=== PATIENT | male | born 1965 | race Caucasian/White ===

== ENCOUNTER 2019-12-13 16:16 | Emergency (ER) | payer MEDICARE, MEDICAID ==
[~2019-12-13] VITALS: Ht 172.7 cm; Wt 93.0 kg
[~2019-12-13 16:16] MED LIST: ALT5C PO; ATOR10TA70 PO; CARV3.122 PO; DILT-36 PO; GLIP10TA11 PO; HYDR25TA4 PO; METF-437 PO
[2019-12-13 16:54] VITALS: BP 110/76
[2019-12-13] MEDS ORDERED: CEPH-572 PO (18:01)
--- NOTE | 2019-12-13 18:01 | NUR ---
pt provided lester crackers and milk as requested by provider.
--- NOTE | 2019-12-13 18:07 | NUR ---
wound cleaned w/ ns, abx ointment applied and dressed w/ non-adhesive.
--- NOTE | 2019-12-13 18:14 | NUR ---
discussed pt's c/o sow w/ PA Senthil;new order received for tylenol
[2019-12-13] MEDS ORDERED: acetaminophen 325mg tablet PO ONE (18:20)
== END 2019-12-13 18:23 | disposition home or self-care (01) ==
LOC: ER 16:17
DX: L03.116 Cellulitis of left lower limb (principal); E11.9 Type 2 diabetes mellitus without complications; G89.29 Other chronic pain; Z59.0 Homelessness; Z90.89 Acquired absence of other organs; Z79.899 Other long term (current) drug therapy
CPT/HCPCS: 99283

== ENCOUNTER 2019-12-19 14:20 | Emergency (ER) | payer MEDICARE, MEDICAID ==
[~2019-12-19] VITALS: Ht 172.7 cm; Wt 93.2 kg
[~2019-12-19 14:20] MED LIST changes: +CEPH-572 PO
[2019-12-19 14:24] VITALS: BP 135/98
[2019-12-19] MEDS ORDERED: BACDS PO (15:49)
== END 2019-12-19 16:41 | disposition home or self-care (01) ==
LOC: ER 14:21
DX: L03.116 Cellulitis of left lower limb (principal); E11.9 Type 2 diabetes mellitus without complications; G89.29 Other chronic pain; Z90.89 Acquired absence of other organs; Z59.0 Homelessness; Z79.899 Other long term (current) drug therapy
CPT/HCPCS: 99283

== ENCOUNTER 2019-12-21 11:08 | Emergency (ER) | payer MEDICARE, MEDICAID ==
[~2019-12-21] VITALS: Ht 175.3 cm; Wt 90.0 kg
[~2019-12-21 11:08] MED LIST changes: +BACDS PO
[2019-12-21 11:30] VITALS: BP 155/106
[2019-12-21] MEDS ORDERED: normal saline 1000ML IV soln IV ONE (12:25)
[2019-12-21 12:29] LABS: BASOPHILS % (AUTO) 0.3 % (0-1); EOSINOPHILS % (AUTO) 0.1 % (0-6); HEMATOCRIT 49.9 % (42.0-52.0); HEMOGLOBIN 17.2 g/dl (14.0-17.9); LYMPHOCYTES # (AUTO) 1.1 X10'3 (1.1-4.8); LYMPHOCYTES % (AUTO) 12.7 % (21-51); MEAN CORPUSCULAR HEMOGLOBIN 32.7 PG (27.0-31.0); MEAN CORPUSCULAR HGB CONC 34.4 g/dL (33.0-36.5); MEAN PLATELET VOLUME 7.6 FL (7.4-10.4); MONOCYTES # (AUTO) 1.2 X10'3 (0-0.9); MONOCYTES % (AUTO) 13.8 % (2-12); NEUTROPHILS # (AUTO) 6.6 X10'3 (1.8-7.7); NEUTROPHILS % (AUTO) 73.1 % (42-75); PLATELET COUNT 286 X10'3 (140-440); RED BLOOD COUNT 5.26 X10'6 (4.70-6.10); RED CELL DISTRIBUTION WIDTH 13.1 % (11.5-14.5)
[2019-12-21 12:38] LABS: ALANINE AMINOTRANSFERASE 51 U/L (12-78); ALBUMIN 4.1 G/DL (3.4-5.0); ALKALINE PHOSPHATASE 114 IU/L (46-116); ANION GAP 10 (8-16); ASPARTATE AMINO TRANSFERASE 30 U/L (10-37); BILIRUBIN,TOTAL 0.4 MG/DL (0.1-1.0); BLOOD UREA NITROGEN 9 MG/DL (7-18); BUN/CREATININE RATIO 9.8 (5.4-32.0); CALCIUM 9.6 MG/DL (8.5-10.1); CHLORIDE 102 MMOL/L (99-107); CREATININE 0.92 MG/DL (0.60-1.10); GLUCOSE 124 MG/DL (70-104); POTASSIUM 3.2 MMOL/L (3.5-5.1); SODIUM 141 MMOL/L (135-145); TOTAL CARBON DIOXIDE 29.4 MMOL/L (24-32); TOTAL PROTEIN 8.3 G/DL (6.4-8.2); eGFR 86 ML/MIN
[2019-12-21] MEDS ORDERED: LORazepam 2 mg/ml vial IV ONE (12:40)
[2019-12-21 12:49] LABS: ETHANOL < 0.010 GM/DL (0.0-0.010)
--- NOTE | 2019-12-21 12:58 | NUR ---
PATIENT STATES HE IS HERE FOR MEDICATION REFILL. STATES HE WAS HERE A FEW DAYS AGO AND WAS GIVEN PRESCRIPTIONS THAT WERE LOST AT HOME. PATIENT HAS HR 108 AT PRESENT, COMING DOWN FROM 120'S ON ARRIVAL. HE IS ANXIOUS AND WANTS TO LEAVE AMA WITH RX, BUT THEN DECIDED TO STAY FOR WORK-UP, IN ORDER TO RECEIVE MEDICATION REFILL.
--- NOTE | 2019-12-21 13:14 | NUR ---
Pt up at doorway, stating he needs to go to the pharmacy and he wants to leave. Pt advised that we are still assessing and treating him and attempted to resolve to make him stay. Pt is still insisting we dc his IV as he wants to leave. MARTHA Cobb notified and in to speak with pt. Pt advised of all risks involved, up to and including . AMA signed. IV dc'd cannula intact. Ambulatory out of ED.
== END 2019-12-21 13:16 | disposition left against medical advice (07) ==
LOC: ER 11:09
DX: R00.0 Tachycardia, unspecified (principal); M54.2 Cervicalgia; E11.9 Type 2 diabetes mellitus without complications; G89.29 Other chronic pain; F15.90 Other stimulant use, unspecified, uncomplicated; Z86.73 Personal history of transient ischemic attack (TIA), and cerebral infarction without residual deficits; Z90.89 Acquired absence of other organs; Z59.0 Homelessness; Z79.2 Long term (current) use of antibiotics; Z79.899 Other long term (current) drug therapy
CPT/HCPCS: 36415; 71045; 80053; 80320; 83605; 83880; 84145; 84443; 85025; 93005; 96360; 99285; J7030; 84484; 87040

== ENCOUNTER 2019-12-23 01:13 | Emergency (ER) | payer MEDICARE, MEDICAID ==
[~2019-12-23] VITALS: Ht 172.7 cm; Wt 90.9 kg
[2019-12-23 01:17] VITALS: BP 150/96
--- NOTE | 2019-12-23 01:30 | NUR ---
WENT TO ASSESS PT, PT IN BATHROOM.
--- NOTE | 2019-12-23 02:10 | NUR ---
PT REQUIRES MULTIPLE REDIRECTIONS BACK TO HIS ROOM. IS WANDERING OUTSIDE OF ROOM REQUESTIVE OF ITEMS FROM STAFF
--- NOTE | 2019-12-23 02:43 | NUR ---
PT REFUSING TO PUT ON GOWN PER EDMD COBIAN REQUEST FOR PROPER PT ASSESSMENT.
--- NOTE | 2019-12-23 02:54 | NUR ---
PT CONTINUES TO REFUSE TO PUT ON GOWN AND STATES "WELL THEN I'M JUST GOING TO LEAVE. YOU ARE IGNORING ME." EXPLAINED TO PT THAT WE ARE BUSY AND TRYING TO GIVE PROPER CARE TO ALL PT IN THE ER, PT BECAME MORE ESCALATED AND STATES HE WANTED TO LEAVE. PT EXITED OUT OF THE AMBULANCE DOORS. TITA COBIAN MADE AWARE.
== END 2019-12-23 02:57 | disposition left against medical advice (07) ==
LOC: ER 01:13
DX: M54.2 Cervicalgia (principal); G89.29 Other chronic pain; R11.2 Nausea with vomiting, unspecified; R41.0 Disorientation, unspecified; I50.9 Heart failure, unspecified; I11.0 Hypertensive heart disease with heart failure; E11.9 Type 2 diabetes mellitus without complications; F17.200 Nicotine dependence, unspecified, uncomplicated; F15.90 Other stimulant use, unspecified, uncomplicated; Z86.73 Personal history of transient ischemic attack (TIA), and cerebral infarction without residual deficits; Z90.89 Acquired absence of other organs; Z72.89 Other problems related to lifestyle; Z59.0 Homelessness; Z79.899 Other long term (current) drug therapy
CPT/HCPCS: 99281

== ENCOUNTER 2019-12-24 21:24 | Emergency (ER) | payer MEDICARE, MEDICAID ==
[~2019-12-24] VITALS: Ht 172.7 cm; Wt 90.9 kg
[2019-12-24 21:27] VITALS: BP 110/72
--- NOTE | 2019-12-24 22:21 | NUR ---
Pt placed in room 18 that does not have a gurney only a chair. Pt stated he needed a new room now or he would fall down. Explained to patient that we did not have an open room with a gurney and if he felt like he would fall to please sit down. Pt stated he is not going to sit down and if we dont give him a room with a bed he is leaving. Encouraged patient to sit down, pt ambulated with steady gait to the restroom and then left the ER.
== END 2019-12-24 22:23 | disposition left against medical advice (07) ==
LOC: ER 21:25
DX: M54.2 Cervicalgia (principal); Z53.21 Procedure and treatment not carried out due to patient leaving prior to being seen by health care provider

== ENCOUNTER 2020-10-28 21:40 | Emergency (ER) | payer MEDICARE, MEDICAID ==
[~2020-10-28] VITALS: Ht 175.3 cm; Wt 95.5 kg
[~2020-10-28 21:40] MED LIST changes: -BACDS PO; -CEPH-572 PO
[2020-10-28 22:13] VITALS: BP 120/84
== END 2020-10-29 04:06 | disposition left against medical advice (07) ==
LOC: ER 21:41
DX: F10.129 Alcohol abuse with intoxication, unspecified (principal); Z53.21 Procedure and treatment not carried out due to patient leaving prior to being seen by health care provider; Y92.89 Other specified places as the place of occurrence of the external cause; Y90.9 Presence of alcohol in blood, level not specified

== ENCOUNTER 2023-03-22 20:55 | Emergency (ER) | payer MEDICARE, MEDICAID ==
[~2023-03-22] VITALS: Ht 175.3 cm; Wt 94.1 kg
[2023-03-22] MEDS ORDERED: nystatin 15 GM powder TP ONE (22:55)
[2023-03-22] MEDS ORDERED: acetaminophen 325mg tablet PO ONE (22:55)
[2023-03-22] MEDS ORDERED: ibuprofen tablet 400 MG TABLET PO ONE (22:55)
[2023-03-22] MEDS ORDERED: ALBU18HF2 IH (23:14)
[2023-03-22 23:43] VITALS: BP 100/60; PULSE 101; RESP 18; TEMP 97.8; O2SAT 98
== END 2023-03-22 23:45 | disposition home or self-care (01) ==
LOC: ER 20:56
DX: T69.021A Immersion foot, right foot, initial encounter (principal); T69.022A Immersion foot, left foot, initial encounter; I11.0 Hypertensive heart disease with heart failure; I50.9 Heart failure, unspecified; E11.9 Type 2 diabetes mellitus without complications; F15.90 Other stimulant use, unspecified, uncomplicated; G89.29 Other chronic pain; Z86.73 Personal history of transient ischemic attack (TIA), and cerebral infarction without residual deficits; Z59.00 Homelessness unspecified; Z72.89 Other problems related to lifestyle; Z79.899 Other long term (current) drug therapy
CPT/HCPCS: 73560; 99284

== ENCOUNTER 2023-03-26 07:12 | Emergency (ER) | payer MEDICARE, MEDICAID ==
[~2023-03-26] VITALS: Ht 175.3 cm; Wt 91.0 kg
[~2023-03-26 07:12] MED LIST changes: +ALBU18HF2 IH
[2023-03-26 07:18] VITALS: BP 147/86; PULSE 102; RESP 18; TEMP 98.1; O2SAT 97
[2023-03-26] MEDS ORDERED: clotrimazole topical cream 15gm tube TP STA (16:20)
== END 2023-03-26 17:31 | disposition home or self-care (01) ==
LOC: ER 07:12
DX: B35.3 Tinea pedis (principal); I11.0 Hypertensive heart disease with heart failure; I50.9 Heart failure, unspecified; E11.9 Type 2 diabetes mellitus without complications; G89.29 Other chronic pain; F15.90 Other stimulant use, unspecified, uncomplicated; Z86.73 Personal history of transient ischemic attack (TIA), and cerebral infarction without residual deficits; Z72.89 Other problems related to lifestyle; Z79.899 Other long term (current) drug therapy; Z59.00 Homelessness unspecified
CPT/HCPCS: 82948; 99283

== ENCOUNTER 2023-03-27 02:42 | Emergency (ER) | payer MEDICARE, MEDICAID ==
[~2023-03-27] VITALS: Ht 175.3 cm; Wt 107.0 kg
[2023-03-27] MEDS ORDERED: ibuprofen tablet 400 MG TABLET PO ONE (03:25)
[2023-03-27] MEDS ORDERED: acetaminophen 325mg tablet PO ONE (03:25)
[2023-03-27 03:46] VITALS: BP 138/80; PULSE 96; RESP 16; TEMP 98.2; O2SAT 98
== END 2023-03-27 03:51 | disposition home or self-care (01) ==
LOC: ER 02:43
DX: M25.561 Pain in right knee (principal); I11.0 Hypertensive heart disease with heart failure; I50.9 Heart failure, unspecified; E11.9 Type 2 diabetes mellitus without complications; F15.90 Other stimulant use, unspecified, uncomplicated; Z59.00 Homelessness unspecified; Z86.73 Personal history of transient ischemic attack (TIA), and cerebral infarction without residual deficits
CPT/HCPCS: 99283; A6449

== ENCOUNTER 2024-01-25 23:39 | Inpatient (IN) | payer MEDICARE, MEDICAID ==
[~2024-01-25] VITALS: Ht 175.3 cm; Wt 98.0 kg
[~2024-01-25 23:39] MED LIST changes: -GLIP10TA11 PO; +GLIP10TA18 PO
[2024-01-25] MEDS ORDERED: CefTRIAXone 2gm/NS 100ml IVPB 50 ML IV ONE (23:50)
[2024-01-26 00:17] LABS: BASOPHILS # (AUTO) 0.1 X10'3 (0-0.2); BASOPHILS % (AUTO) 0.5 % (0-1); EOSINOPHILS # (AUTO) 0.3 X10'3 (0-0.9); EOSINOPHILS % (AUTO) 2.4 % (0-6); HEMATOCRIT 48.4 % (42.0-52.0); HEMOGLOBIN 16.1 g/dl (14.0-17.9); LYMPHOCYTES # (AUTO) 1.8 X10'3 (1.1-4.8); LYMPHOCYTES % (AUTO) 14.6 % (21-51); MEAN CORPUSCULAR HEMOGLOBIN 31.5 PG (27.0-31.0); MEAN CORPUSCULAR HGB CONC 33.3 g/dL (33.0-36.5); MEAN CORPUSCULAR VOLUME 94.8 FL (78-98); MEAN PLATELET VOLUME 7.5 FL (7.4-10.4); MONOCYTES # (AUTO) 1.2 X10'3 (0-0.9); NEUTROPHILS # (AUTO) 8.7 X10'3 (1.8-7.7); NEUTROPHILS % (AUTO) 72.5 % (42-75); PLATELET COUNT 264 X10'3 (140-440); RED CELL DISTRIBUTION WIDTH 13.2 % (11.5-14.5)
[2024-01-26 00:19] LABS: BILIRUBIN,URINE NEGATIVE (Neg); CLARITY,URINE CLOUDY (Clear); COLOR,URINE YELLOW (Yellow); GLUCOSE, URINE >=1000 mg/dl (Neg); KETONES,URINE 15 mg/dl (Neg); LEUKOCYTE ESTERASE ,URINE SMALL (Neg); NITRITES, URINE NEGATIVE (Neg); OCCULT BLOOD,URINE LARGE (Neg); PH,URINE 6.5 (4.8-8.0); PROTEIN,URINE 100 mg/dl (Neg)
[2024-01-26] MEDS: CefTRIAXone 2gm/D5W 50ml BAG 50 ML IV ONE (00:25)
[2024-01-26 00:26] LABS: ALANINE AMINOTRANSFERASE 58 U/L (12-78); ALBUMIN 3.7 G/DL (3.4-5.0); ALBUMIN/GLOBULIN RATIO 0.9 (1.1-1.5); ALKALINE PHOSPHATASE 91 IU/L (46-116); ANION GAP 5 (8-16); ASPARTATE AMINO TRANSFERASE 18 U/L (10-37); BILIRUBIN,TOTAL 0.4 MG/DL (0.1-1.0); BLOOD UREA NITROGEN 19 MG/DL (7-18); BUN/CREATININE RATIO 18.3 (10.0-20.0); CALCIUM 9.1 MG/DL (8.5-10.1); CHLORIDE 102 MMOL/L (99-107); CREATININE 1.04 MG/DL (0.60-1.10); GLUCOSE 257 MG/DL (70-104); POTASSIUM 4.2 MMOL/L (3.5-5.1); SODIUM 136 MMOL/L (135-145); TOTAL CARBON DIOXIDE 29.5 MMOL/L (24-32); TOTAL PROTEIN 7.7 G/DL (6.4-8.2); eCRCL 77 ML/MIN; eGFR 73 ML/MIN
[2024-01-26] MEDS: normal saline 1000ML IV soln IVB ONE (00:26)
[2024-01-26] MEDS ORDERED: iohexol 300mg/ml 100ml inj. ONE (00:27)
[2024-01-26 00:28] LABS: UA COLLECTION TYPE CLN CATCH MIDSTREAM
[2024-01-26 00:29] LABS: C-REACTIVE PROTEIN 0.27 MG/DL (0.0-0.5); LIPASE 43 U/L (16-77)
[2024-01-26 00:29] LABS: BACTERIA,URINE 1+ /HPF (Neg); RBC,URINE 50-100 /HPF (0-2); WBC,URINE 30-50 /HPF (0-4)
[2024-01-26 00:30] LABS: SPERM FEW /HPF (NEGATIVE); SQUAMOUS EPITHELIAL CELL,UR FEW /LPF (FEW); TRANSITIONAL EPI CELLS,URINE FEW /HPF
[2024-01-26 00:31] LABS: AMORPHOUS URATES 1+
[2024-01-26 00:37] LABS: URINE AMPHETAMINE SCREEN NEGATIVE (Neg); URINE BARBITUATE SCREEN NEGATIVE (Neg); URINE BENZODIAZEPINES SCREEN NEGATIVE (Neg); URINE CANNABINOID SCREEN NEGATIVE (Neg); URINE COCAINE SCREEN NEGATIVE (Neg); URINE METHADONE SCREEN NEGATIVE (Neg); URINE OPIATE SCREEN NEGATIVE (Neg); URINE PHENCYCLIDINE SCREEN NEGATIVE (Neg)
[2024-01-26] MEDS: ondansetron/PF 4mg/2ml inj IV ONE (01:26)
[2024-01-26] MEDS: morphine 4 MG/ML inj SYRINge IV ONE (01:26)
[2024-01-26] MEDS: fentaNYL/PF 50MCG/1 ML 2ML syringe IV ONE (02:02)
[2024-01-26] MEDS: HYDROmorphone 1 mg/ml syringe IV ONE (02:31)
[2024-01-26] MEDS ORDERED: CEFP100S9 PO (03:13)
[2024-01-26] MEDS: ketorolac trometh 30MG/ML vial 30 MG/ML VIAL IV ONE (04:26)
[2024-01-26] MEDS ORDERED: potassium Cl 20 mEq SR tablet PO PRN ×2 (04:35)
[2024-01-26] MEDS ORDERED: acetaminophen 325mg tablet PO PRN (04:35)
[2024-01-26] MEDS ORDERED: DEXTROSE 15 GM of carb/4 tabs (each vial/BOTTLE has 4 tablets) PO PRN ×2 (04:35)
[2024-01-26] MEDS ORDERED: magnesium sulf-water 2g/50mL 50 ML IV PRN (04:35)
[2024-01-26] MEDS ORDERED: HYDROcodone/acetaminophen 5mg/325mg tablet PO PRN (04:35)
[2024-01-26] MEDS ORDERED: ondansetron/PF 4mg/2ml inj IV PRN (04:35)
[2024-01-26] MEDS ORDERED: magnesium Cl slow-release 64mg tablet PO PRN (04:35)
[2024-01-26] MEDS ORDERED: potassium Cl 40MEQ/1/2NS 520ml 520 ML IV PRN (04:35)
[2024-01-26] MEDS ORDERED: magnesium sulf-water 4G/100mL 100 ML IV PRN (04:35)
[2024-01-26] MEDS ORDERED: dextrose 50%-water 50ml dispensing syringe IV PRN ×2 (04:35)
[2024-01-26] MEDS ORDERED: glucagon, human recombinant 1mg kit SUBCUT PRN (04:35)
[2024-01-26] MEDS ORDERED: magnesium hydroxide 30ml (MOM) UD suspension PO PRN (04:35)
[2024-01-26 05:22] LABS: HEMOGLOBIN A1C 8.8 % (4.5-6.2)
[2024-01-26] MEDS: HYDROcodone/acetaminophen 10/325mg tab PO PRN (05:27)
[2024-01-26] MEDS: normal saline 1000ml 1,000 ML IV SCH ×2 (05:28→12:40)
[2024-01-26] MEDS: INSULIN LISPRO 100 UNIT/ML INSULN.PEN MULTI-DOSE SQ SCH ×2 (07:33→09:00)
[2024-01-26] MEDS: docusate sod 100mg capsule PO SCH (07:35)
[2024-01-26] MEDS: LORazepam 0.5 MG tablet PO ONE (07:35)
[2024-01-26] MEDS: enoxaparin 40mg/0.4ml syringe SUBCUT SCH (07:36)
[2024-01-26] MEDS: K and/or MAG REPLACEMENT MC SCH (08:00)
[2024-01-26] MEDS: nicotine 21mg patch - 24 hr TD ONE (09:29)
[2024-01-26 10:30] VITALS: RESP 20
[2024-01-26 10:51] VITALS: BP 114/78; PULSE 97; RESP 15; TEMP 97.8; O2SAT 99
[2024-01-26] MEDS ORDERED: enoxaparin 30mg/0.3ml syringe SUBCUT SCH (13:30)
[2024-01-26] MEDS ORDERED: NALT50TA5 PO (15:45)
[2024-01-26] MEDS ORDERED: GLIP5TAB23 PO (15:45)
[2024-01-26] MEDS ORDERED: ATOR40TA72 PO (15:45)
[2024-01-26] MEDS ORDERED: METF-438 PO (15:45)
[2024-01-26] MEDS ORDERED: INSU100I98 (15:45)
[2024-01-26 18:00] VITALS: BP 127/86; PULSE 104; RESP 16; TEMP 97.5; O2SAT 92
[2024-01-26] MEDS ORDERED: albuterol 2.5 MG/3 ML nebule NEB SCH (18:00)
[2024-01-26] MEDS: morphine 2 MG/ML inj. syringe IV ONE (20:45)
[2024-01-26] MEDS: CefTRIAXone/D5W-Rocephin 1gm 50 ML IV SCH (20:45)
[2024-01-26] MEDS: insulin glargine (Lantus) pen - multi-dose SQ SCH (21:07)
[2024-01-26 22:00] VITALS: BP 149/92; PULSE 104; RESP 20; TEMP 98.3; O2SAT 96
[2024-01-27] MEDS: nicotine 14mg patch - 24hr TD SCH (00:48)
[2024-01-27 06:00] VITALS: BP 124/79; PULSE 92; RESP 20; TEMP 97.1; O2SAT 94
[2024-01-27 07:04] LABS: BASOPHILS # (AUTO) 0.1 X10'3 (0-0.2); BASOPHILS % (AUTO) 0.5 % (0-1); EOSINOPHILS # (AUTO) 0.3 X10'3 (0-0.9); HEMATOCRIT 42.6 % (42.0-52.0); HEMOGLOBIN 14.4 g/dl (14.0-17.9); LYMPHOCYTES # (AUTO) 1.6 X10'3 (1.1-4.8); LYMPHOCYTES % (AUTO) 14.2 % (21-51); MEAN CORPUSCULAR HEMOGLOBIN 32.5 PG (27.0-31.0); MEAN CORPUSCULAR HGB CONC 33.9 g/dL (33.0-36.5); MEAN PLATELET VOLUME 8.1 FL (7.4-10.4); MONOCYTES # (AUTO) 1.2 X10'3 (0-0.9); MONOCYTES % (AUTO) 10.8 % (2-12); NEUTROPHILS # (AUTO) 7.9 X10'3 (1.8-7.7); NEUTROPHILS % (AUTO) 71.5 % (42-75); PLATELET COUNT 223 X10'3 (140-440); RED BLOOD COUNT 4.43 X10'6 (4.70-6.10)
[2024-01-27 07:16] LABS: ALBUMIN 3.1 G/DL (3.4-5.0); ANION GAP 6 (8-16); BLOOD UREA NITROGEN 13 MG/DL (7-18); BUN/CREATININE RATIO 16.5 (10.0-20.0); CALCIUM 8.2 MG/DL (8.5-10.1); CHLORIDE 103 MMOL/L (99-107); CREATININE 0.79 MG/DL (0.60-1.10); GLUCOSE 136 MG/DL (70-104); MAGNESIUM 1.7 MG/DL (1.5-2.4); POTASSIUM 3.6 MMOL/L (3.5-5.1); SODIUM 137 MMOL/L (135-145); TOTAL CARBON DIOXIDE 27.7 MMOL/L (24-32); eCRCL 102 ML/MIN; eGFR > 90 ML/MIN
[2024-01-27] MEDS: atorvastatin 20mg tablet PO SCH (07:46)
[2024-01-27] MEDS: enoxaparin 40mg/0.4ml syringe SUBCUT SCH (07:50)
[2024-01-27 07:54] VITALS: RESP 20
[2024-01-27] MEDS: naltrexone 50mg tablet PO SCH (08:00)
[2024-01-27 10:00] VITALS: BP 103/65; PULSE 76; RESP 16; TEMP 97.9; O2SAT 93
[2024-01-27] MEDS ORDERED: albuterol 2.5 MG/3 ML nebule NEB SCH (11:00)
[2024-01-27] MEDS ORDERED: albuterol 2.5 MG/3 ML nebule NEB PRN (11:05)
[2024-01-27] MEDS: morphine 2 MG/ML inj. syringe IV PRN (11:50)
[2024-01-27] MEDS: carVEDilol 3.125mg tablet PO SCH (14:15)
[2024-01-27] MEDS: FLU VACC TS2024-25(6MOS UP)/PF 45 MCG/0.5 ML SYRINGE IMVAC ONE (16:18)
[2024-01-27 18:00] VITALS: BP 110/85; PULSE 82; RESP 20; TEMP 98.3; O2SAT 93
[2024-01-27] MEDS: tamsulosin 0.4mg capsule PO SCH (19:46)
[2024-01-27 22:00] VITALS: BP 109/77; PULSE 77; RESP 18; TEMP 97.5; O2SAT 93
[2024-01-28 06:30] LABS: BASOPHILS % (AUTO) 0.4 % (0-1); EOSINOPHILS # (AUTO) 0.3 X10'3 (0-0.9); EOSINOPHILS % (AUTO) 5.4 % (0-6); HEMATOCRIT 40.1 % (42.0-52.0); HEMOGLOBIN 13.5 g/dl (14.0-17.9); LYMPHOCYTES # (AUTO) 1.4 X10'3 (1.1-4.8); MEAN CORPUSCULAR HGB CONC 33.5 g/dL (33.0-36.5); MEAN CORPUSCULAR VOLUME 95.5 FL (78-98); MEAN PLATELET VOLUME 7.5 FL (7.4-10.4); MONOCYTES # (AUTO) 0.6 X10'3 (0-0.9); MONOCYTES % (AUTO) 10.3 % (2-12); NEUTROPHILS # (AUTO) 3.4 X10'3 (1.8-7.7); NEUTROPHILS % (AUTO) 58.9 % (42-75); PLATELET COUNT 209 X10'3 (140-440); WHITE BLOOD COUNT 5.7 X10'3 (4.5-11.0)
[2024-01-28 06:40] LABS: ALBUMIN 2.8 G/DL (3.4-5.0); ANION GAP 5 (8-16); BLOOD UREA NITROGEN 13 MG/DL (7-18); BUN/CREATININE RATIO 18.6 (10.0-20.0); CALCIUM 8.1 MG/DL (8.5-10.1); CHLORIDE 105 MMOL/L (99-107); GLUCOSE 172 MG/DL (70-104); MAGNESIUM 1.8 MG/DL (1.5-2.4); POTASSIUM 3.8 MMOL/L (3.5-5.1); SODIUM 139 MMOL/L (135-145); eCRCL 115 ML/MIN; eGFR > 90 ML/MIN
[2024-01-28 06:58] VITALS: BP 110/58; PULSE 64; RESP 20; TEMP 98.1; O2SAT 95
[2024-01-28] MEDS ORDERED: HYDR-3972 PO (07:29)
[2024-01-28] MEDS: lisinopril 5mg tablet PO SCH (07:40)
[2024-01-28 07:45] VITALS: RESP 20; O2SAT 95
[2024-01-28] MEDS ORDERED: CEFD300C3 PO (10:27)
[2024-01-28] MEDS ORDERED: FLO0.4C PO (10:37)
[2024-01-28 11:10] VITALS: BP 132/67; PULSE 59; RESP 18; TEMP 98.9; O2SAT 98
== END 2024-01-28 11:10 | disposition home or self-care (01) | DRG 690 ==
LOC: ER 23:40 → ED HOLD 01-26 04:45 → ORTHO 4S 01-26 10:45
PROVIDERS: ADMIT Internal Medicine Sleep Medicine; ATTEND Internal Medicine
DX: N13.6 Pyonephrosis (principal); I50.32 Chronic diastolic (congestive) heart failure; Z59.00 Homelessness unspecified; K57.30 Diverticulosis of large intestine without perforation or abscess without bleeding; E78.5 Hyperlipidemia, unspecified; E11.9 Type 2 diabetes mellitus without complications; M54.9 Dorsalgia, unspecified; I11.0 Hypertensive heart disease with heart failure; Z79.899 Other long term (current) drug therapy; Z79.84 Long term (current) use of oral hypoglycemic drugs
CPT/HCPCS: 36415; 74177; 80048; 80053; 80305; 81001; 82948; 83036; 83690; 83735; 84145; 84484; 85025; 85651; 86140; 87081; 87088; 90686; 93306; 94760; 96365; 96375; 99285; G0378; J0696; J1171; J1650; J1815; J1885; J2270; J2405; J3010; J7030; Q9967

== ENCOUNTER 2024-01-28 15:18 | Emergency (ER) | payer MEDICARE, MEDICAID ==
[~2024-01-28] VITALS: Ht 172.7 cm; Wt 98.4 kg
[~2024-01-28 15:18] MED LIST changes: -ATOR10TA70 PO; +ATOR40TA72 PO; +CEFD300C3 PO; +CEFP100S9 PO; +FLO0.4C PO; -GLIP10TA18 PO; +GLIP5TAB23 PO; +HYDR-3972 PO; +INSU100I98; -METF-437 PO; +METF-438 PO; +NALT50TA5 PO
[2024-01-28 15:25] VITALS: BP 135/66; PULSE 98; TEMP 97.3; O2SAT 100
[2024-01-28 17:38] VITALS: RESP 20
== END 2024-01-28 17:39 | disposition home or self-care (01) ==
LOC: ER 15:18
DX: N20.0 Calculus of kidney (principal); I11.0 Hypertensive heart disease with heart failure; I50.9 Heart failure, unspecified; E11.9 Type 2 diabetes mellitus without complications; G89.29 Other chronic pain; M54.9 Dorsalgia, unspecified; F17.210 Nicotine dependence, cigarettes, uncomplicated; F15.90 Other stimulant use, unspecified, uncomplicated; Z59.00 Homelessness unspecified; Z90.89 Acquired absence of other organs; Z86.73 Personal history of transient ischemic attack (TIA), and cerebral infarction without residual deficits; Z79.84 Long term (current) use of oral hypoglycemic drugs; Z79.899 Other long term (current) drug therapy; Z72.89 Other problems related to lifestyle
CPT/HCPCS: 99281; 99283

== ENCOUNTER 2024-02-11 09:26 | Emergency (ER) | payer MEDICARE, MEDICAID ==
[~2024-02-11] VITALS: Ht 175.3 cm; Wt 98.2 kg
[~2024-02-11 09:26] MED LIST changes: -CEFD300C3 PO; -CEFP100S9 PO
[2024-02-11 09:42] VITALS: BP 124/89; PULSE 106; TEMP 98.5; O2SAT 95
[2024-02-11] MEDS ORDERED: FLO0.4C PO (10:05)
[2024-02-11 10:12] VITALS: RESP 18
== END 2024-02-11 10:18 | disposition home or self-care (01) ==
LOC: ER 09:27
DX: N20.0 Calculus of kidney (principal); I11.0 Hypertensive heart disease with heart failure; I50.9 Heart failure, unspecified; E11.9 Type 2 diabetes mellitus without complications; G89.29 Other chronic pain; M54.9 Dorsalgia, unspecified; F17.210 Nicotine dependence, cigarettes, uncomplicated; F15.90 Other stimulant use, unspecified, uncomplicated; Z79.84 Long term (current) use of oral hypoglycemic drugs; Z79.899 Other long term (current) drug therapy; Z86.73 Personal history of transient ischemic attack (TIA), and cerebral infarction without residual deficits; Z87.442 Personal history of urinary calculi; Z76.0 Encounter for issue of repeat prescription; Z90.89 Acquired absence of other organs; Z59.00 Homelessness unspecified
CPT/HCPCS: 99281

== ENCOUNTER 2024-11-28 22:20 | Emergency (ER) | payer MEDICARE, MEDICAID ==
[~2024-11-28] VITALS: Ht 175.3 cm; Wt 74.0 kg
[~2024-11-28 22:20] MED LIST changes: -FLO0.4C PO
[2024-11-28 22:25] VITALS: BP 137/92; PULSE 72; TEMP 97.9; O2SAT 98
[2024-11-28 23:02] LABS: MEAN PLATELET VOLUME 6.8 FL (7.4-10.4); RED CELL DISTRIBUTION WIDTH 13.7 % (11.5-14.5)
[2024-11-28 23:20] LABS: CREATININE 0.85 MG/DL (0.60-1.10); TOTAL CARBON DIOXIDE 26.4 MMOL/L (24-32); eCRCL 95 ML/MIN; eGFR > 90 ML/MIN
--- NOTE | 2024-11-29 00:44 | Physician Documentation ---
History of Present Illness General Chief Complaint: Abdominal Pain Stated Complaint: ABD PAIN Time Seen by MD: 00:44 Primary Medical Doctor: Natlaya Thornton History of Present Illness Initial Comments Patient is a 58-year-old male who states he developed a mid abdominal pain proximally a p.m. on the day prior proximally 4 hours ago. The patient states it was sudden onset what was going to the bathroom. Patient states he over last month he has been having trouble with the urine and having dysuria and some frequency he states he has been on antibiotics for urinary tract infection. The patient denies any history of a hernia he did note a slight swelling to his anterior abdomen. Patient denies any fevers chills nausea or vomiting. Medication Reconciliation Allergies: Coded Allergies: No Known Allergies (Unverified , 01/28/24) Scheduled Albuterol Sulfate (Ventolin Hfa), 2 PUFFS IH 5XD Amox Tr/Potassium Clavulanate 875/125 MG (Augmentin 875/125 MG), 1 TAB PO BID Atorvastatin Calcium (Atorvastatin Calcium), 1 TAB PO DAILY, (Reported) Carvedilol (Carvedilol), 1 TAB PO BID, (Reported) Diltiazem HCl (Diltiazem 24Hr Cd), 1 CAP PO DAILY Glipizide (Glipizide), 1 TAB PO DAILY, (Reported) Hydrochlorothiazide (Hydrochlorothiazide), 1 TAB PO DAILY, (Reported) Metformin HCl (Metformin HCl), 1 TAB PO BID, (Reported) Naltrexone Hcl (Naltrexone Hcl), 1 TAB PO DAILY, (Reported) Ramipril (Altace), 1 CAPSULE PO DAILY, (Reported) Scheduled PRN Hydrocodone Bit/Acetaminophen (Hydrocodon-Acetaminophn 10-325 tablet), 1 TAB PO Q6H PRN for SEVERE PAIN 7-10 Miscellaneous Medications Insulin Glargine-Yfgn (Semglee (Yfgn) Pen), (Reported) Past Medical History Past Medical History: CVA/TIA/Stroke, Congestive Heart Failure, Hypertension, Diabetes, Chronic Back Pain Past Surgical History: tonsillectomy Smoking: Cigarettes, Greater than 1 pack/day Alcohol Use: Occasionally Drug Use: methamphetamine Lives with: Mother Lives In: Homeless Review of Systems All Other Systems at this time: Reviewed and Negative Physical Exam Physical Exam Vital Signs: Temperature: 97.9, Source: Oral, Heart Rate: 72, Respiratory Rate: 16, BP: 137/92, Pulse Oximetry: 98, Weight: 74.000 Oxygen Flow Rate: 0 Physical Exam VITALS: Reviewed and as above. GENERAL: Alert, no apparent distress. HEENT: Normocephalic, atraumatic, PERRL, EOMI, dry mucosa, no erythema RESPIRATORY: Lungs clear, normal breath sounds, no respiratory distress. CHEST: No accessory muscle use, no retractions CV: Regular rate, rhythm, no edema, no murmur, No: JVD GI: Patient had a 5 cm periumbilical swelling that was tender, bowels sounds present, no rebound, guarding, or rigidity BACK: No CVA tenderness, or swelling MUSCULOSKELETAL: No deformities, no edema SKIN: Warm and dry, no rash NEURO: Oriented x4, No motor or sensory deficit PSYCH: Normal mood and affect, no agitation Progress Results/Orders Results/Orders Orders - PRCHADD HOFFMAN MD Cult Urine + [address] (11/29/24 02:42) Completed Orders - CHADD GARRISON MD Cbc/Diff (11/28/24 22:23) Lipase (11/28/24 22:23) CMP (11/28/24 22:23) Procalcitonin (11/29/24 00:48) Oxycodone/Acetaminophen Tablet (Percocet (11/29/24 01:55) Amox Tr/Potassium Clavulanate (Augmentin (11/29/24 01:55) Ua W/Microscopic, Cult If Ind (11/29/24 01:36) Medications Received in ER Medications (Trade) Dose Ordered Sig/Anupama Route PRN Reason Start Time Stop Time Status Last Admin Dose Admin (Percocet 5-325mg tab) 1 tab ONCE ONCE PO 11/29/24 01:55 11/29/24 01:59 DC 11/29/24 02:16 1 TAB (Augmentin 875-125mg tablet) 1 tab ONCE ONCE PO 11/29/24 01:55 11/29/24 01:56 DC 11/29/24 02:15 1 TAB Vital Signs 11/28/24 11/29/24 22:25 02:16 Temp 97.9 Pulse 72 Resp 16 14 B/P (MAP) 137/92 Pulse Ox 98 O2 Flow Rate 0 Laboratory Tests Test 11/28/24 22:48 11/29/24 01:36 White Blood Count 8.9 Red Blood Count 4.52 L Hemoglobin 14.6 Hematocrit 43.0 Mean Corpuscular Volume 95.3 Mean Corpuscular Hemoglobin 32.3 H Mean Corpuscular Hemoglobin Concent 33.9 Red Cell Distribution Width 13.7 Platelet Count 254 Mean Platelet Volume 6.8 L Neutrophils (%) (Auto) 75.0 Lymphocytes (%) (Auto) 16.1 L Monocytes (%) (Auto) 7.0 Eosinophils (%) (Auto) 1.1 Basophils (%) (Auto) 0.8 Neutrophils # (Auto) 6.7 Lymphocytes # (Auto) 1.4 Monocytes # (Auto) 0.6 Eosinophils # (Auto) 0.1 Basophils # (Auto) 0.1 CBC Comment Sodium Level 142 Potassium Level 3.9 Chloride Level 106 Carbon Dioxide Level 26.4 Anion Gap 10 Blood Urea Nitrogen 14 Creatinine 0.85 Estimated GFR/1.73 m2 > 90 BUN/Creatinine Ratio 16.5 Glucose Level 173 H Calcium Level 8.6 Total Bilirubin 0.3 Aspartate Amino Transf (AST/SGOT) 64 H Alanine Aminotransferase (ALT/SGPT) 111 H Alkaline Phosphatase 80 Total Protein 7.5 Albumin 3.4 Globulin 4.1 Albumin/Globulin Ratio 0.8 L Lipase 32 Procalcitonin < 0.05 Chemistry Comments Urine Specimen Description Cln catch midstream Urine Color Yellow Urine Clarity Clear Urine pH 7.5 Urine Specific [place] 1.020 Urine Protein >=300 H Urine Glucose (UA) Negative Urine Ketones 15 H Urine Occult Blood Large H Urine Nitrite Positive H Urine Bilirubin Small Urine Urobilinogen 1.0 Urine Leukocyte Esterase Small H Urine RBC 0-2 Urine WBC 50-100 H Urine Squamous Epithelial Cells Few Urine Bacteria Few Urine Culture Indicated Indicated Volume Urine Centrifuged 10 ml Urine Comment Departure Impression: Primary Impression: Hernia of abdominal wall Additional Impression: Acute urinary tract infection Discharge Instructions: Hernia, Adult, [id number] Referrals: NO PRIMARY CARE PROVIDER (PCP) BERTA MARTINEZ MD Prescriptions Amox Tr/Potassium Clavulanate 875/125 MG (Augmentin 875/125 MG) 875 Mg-125 Mg Tablet 1 TAB PO BID, #28 TAB Prov: CHADD GARRISON MD 11/29/24 CHADD GARRISON MD Nov 29, 2024 00:44
[2024-11-29] MEDS: amox tr/potassium clavulanate 875/125mg TAB PO ONE (02:15)
[2024-11-29 02:16] VITALS: RESP 14
[2024-11-29] MEDS: oxyCODONE/APAP 5-325mg tablet PO ONE (02:16)
[2024-11-29 02:20] LABS: LEUKOCYTE ESTERASE ,URINE SMALL (Neg); NITRITES, URINE POSITIVE (Neg); OCCULT BLOOD,URINE LARGE (Neg)
[2024-11-29 02:21] LABS: UA COLLECTION TYPE CLN CATCH MIDSTREAM
[2024-11-29 02:42] LABS: SQUAMOUS EPITHELIAL CELL,UR FEW /LPF (FEW)
[2024-11-29] MEDS ORDERED: AMOX-580 PO (02:47)
== END 2024-11-29 03:14 | disposition home or self-care (01) ==
LOC: ER 22:20
DX: K43.9 Ventral hernia without obstruction or gangrene (principal); N39.0 Urinary tract infection, site not specified; I11.0 Hypertensive heart disease with heart failure; I50.9 Heart failure, unspecified; G89.29 Other chronic pain; F17.210 Nicotine dependence, cigarettes, uncomplicated; F15.90 Other stimulant use, unspecified, uncomplicated; E11.9 Type 2 diabetes mellitus without complications; Z86.73 Personal history of transient ischemic attack (TIA), and cerebral infarction without residual deficits; Z59.00 Homelessness unspecified; Z90.89 Acquired absence of other organs; Z79.899 Other long term (current) drug therapy; Z72.89 Other problems related to lifestyle; Z79.84 Long term (current) use of oral hypoglycemic drugs
CPT/HCPCS: 36415; 80053; 81001; 83690; 84145; 85025; 87088; 99283